=== PATIENT | female | born 1985 | race Caucasian/White ===

== ENCOUNTER 2024-05-28 00:33 | Emergency (ER) | payer OTHER ==
[2024-05-28 01:03] LABS: Bilirubin Neg (Negative); Blood, Urine 250 (Negative); Glucose, Urine (Dipstick) Normal (Negative); Ketone, Urine Negative (Negative); Leukocyte 500 (Negative); Nitrite Negative (Negative); Protein, Urine (Dipstick) 100 mg/dl (Neg-Trace); Specific Gravity, Urine 1.025 (1.005-1.030)
[2024-05-28 01:05] LABS: Pregnancy Test - Urine (BHCG) Negative (Negative); Pregu Control Background? CLEAR/WHITE (CLR/WHITE); Pregu Control Bar Appear? YES (CONTROL BAR); Specific Gravity 1.025 (1.002-1.036)
[2024-05-28 01:13] LABS: Clarity Turbid (Clear)
[2024-05-28 01:14] LABS: Bacteria/HPF 3+ HPF (None Seen); CAUTI Indications for Culture Dysuria,urgency,freq; RBC/HPF Greater than 50 HPF (0-3); Squamous Epithelial 0-3 HPF (0-3); WBC/HPF Greater than 50 HPF (0-3)
[2024-05-28 01:15] LABS: Urine Culture Reflex Yes Yes
[2024-05-29 14:34] LABS: Chlam.trachomatis by PCR,Urine Not Detected (NotDetected); GC N.gonorrhoeae PCR,UrineVOID Not Detected (NotDetected)
== END 2024-05-28 01:44 | disposition home or self-care (01) ==
LOC: CSHERS 00:33
DX: N30.91 Cystitis, unspecified with hematuria (principal)
CPT/HCPCS: 81001; 81025; 87077; 87086; 87186; 87491; 87591; 99283